=== PATIENT | female | born 1960 | race Caucasian/White ===

== ENCOUNTER 2023-04-29 13:37 | Outpatient (CLI) | payer BC | END 2023-04-29 13:38 | disposition home or self-care (01) | LOC: SCSRAD 13:37 | PROVIDERS: ATTEND Family Medicine | DX: M54.2 Cervicalgia (principal); Z98.890 Other specified postprocedural states; M47.812 Spondylosis without myelopathy or radiculopathy, cervical region | CPT/HCPCS: 72040 ==